=== PATIENT | female | born 1955 | race Caucasian/White ===

== ENCOUNTER 2019-01-03 07:55 | Day surgery (SDC) | payer OTHER ==
[~2019-01-03] VITALS: Ht 165.1 cm; Wt 65.9 kg
[~2019-01-03 07:55] MED LIST: ASCO500 PO; CENTRUM WOMEN1 EACH PO; LO-DOSE ASPIRIN81 MG PO; PARO12.5 PO; Pravachol40 MG PO; Zantac150 MG PO
--- NOTE | 2019-01-03 09:53 | NUR ---
01/03/19 0953 Madeline Perez SIMETHICONE USED DURING PROCEDURE.
== END 2019-01-03 11:45 | disposition home or self-care (01) ==
LOC: ORSCSDS 07:55
DX: R11.2 Nausea with vomiting, unspecified (principal); K29.70 Gastritis, unspecified, without bleeding; K29.80 Duodenitis without bleeding; B96.81 Helicobacter pylori [H. pylori] as the cause of diseases classified elsewhere; Z12.11 Encounter for screening for malignant neoplasm of colon; D12.5 Benign neoplasm of sigmoid colon; D12.4 Benign neoplasm of descending colon; D12.8 Benign neoplasm of rectum; K63.5 Polyp of colon; Z87.891 Personal history of nicotine dependence; E78.00 Pure hypercholesterolemia, unspecified; Z79.899 Other long term (current) drug therapy; Z79.82 Long term (current) use of aspirin
CPT/HCPCS: 88305; 88341; 88342; J2704; J7120

== ENCOUNTER 2019-08-31 10:26 | Emergency (ER) | payer OTHER ==
[~2019-08-31] VITALS: Ht 165.1 cm; Wt 59.0 kg
== END 2019-08-31 11:42 | disposition home or self-care (01) ==
LOC: ER 10:26
DX: S20.212A Contusion of left front wall of thorax, initial encounter (principal); X58.XXXA Exposure to other specified factors, initial encounter; Z79.899 Other long term (current) drug therapy; Z79.82 Long term (current) use of aspirin; Z87.891 Personal history of nicotine dependence
CPT/HCPCS: 71046; 99283-25

== ENCOUNTER → 2021-11-20 | Outpatient (CLI) | payer OTHER | END | disposition home or self-care (01) | LOC: LAB SHORT 11:28 → LAB 11:28 | DX: L82.1 Other seborrheic keratosis (principal) | CPT/HCPCS: 88305 ==

== ENCOUNTER 2022-11-12 08:18 | Day surgery (SDC) | payer OTHER ==
[~2022-11-12] VITALS: Ht 165.1 cm; Wt 65.5 kg
[2022-11-12] MEDS ORDERED: ONDA4 (08:32)
[2022-11-12 10:14] VITALS: BP 117/72
--- NOTE | 2022-11-12 10:14 | NUR ---
11/12/22 1014 Lisa Ryan IV REMOVED INTACT WNL
== END 2022-11-12 10:20 | disposition home or self-care (01) ==
LOC: ORSCSDS 08:18
PROVIDERS: Surgery
PROC: 0DBP8ZX Excision of Rectum, Via Natural or Artificial Opening Endoscopic, Diagnostic (ICD-10-PCS; principal; 2022-11-12 09:30)
PROC: 0DBN8ZX Excision of Sigmoid Colon, Via Natural or Artificial Opening Endoscopic, Diagnostic (ICD-10-PCS; principal; 2022-11-12 09:30)
DX: Z12.11 Encounter for screening for malignant neoplasm of colon (principal); Z86.010 Personal history of colon polyps; D12.5 Benign neoplasm of sigmoid colon; E78.00 Pure hypercholesterolemia, unspecified; Z87.891 Personal history of nicotine dependence; Z79.899 Other long term (current) drug therapy
CPT/HCPCS: 88305; J2250; J2704; J7120